=== PATIENT | male | born 1995 | race Caucasian/White ===

== ENCOUNTER 2017-10-08 18:13 | Emergency (ER) | payer SELFPAY ==
--- NOTE | 2017-10-08 19:13 | ED Physician Documentation ---
General Adult - HISTORIAN Historian: patient - HPI Stated Complaint: right hand pain Chief Complaint: General Adult Onset: minutes Timing: still present Severity: moderate Further Comments: yes (Pt is a 22 yo male with R hand injury. Pt punched a wall on a bet, he says. Pain over R 5th metacarpel and R wrist.) - ROS CONST: no problems EYES/ENT: none CVS/RESP: none GI/: none MS/SKIN/LYMPH: other (R hand injury) - PAST HX Past History: none - SOCIAL HX Smoking History: cigarettes - FAMILY HX Family History: No - VITAL SIGNS Vital Signs: Vital Signs Temp Pulse Resp BP Pulse Ox 98.4 F 80 18 122/76 99 10/08/17 18:15 10/08/17 18:15 10/08/17 18:15 10/08/17 18:15 10/08/17 18:15 - REVIEWED ASSESSMENTS Nursing Assessment Reviewed: No Vitals Reviewed: No <Antwan Quinones - Last Filed: 10/08/17 19:11> - VITAL SIGNS Vital Signs: Vital Signs Temp Pulse Resp BP Pulse Ox 98.4 F 80 18 122/76 99 10/08/17 18:15 10/08/17 18:15 10/08/17 18:15 10/08/17 18:15 10/08/17 18:15 <JULIET SAMUELS - Last Filed: 10/08/17 21:29> - PAST HX Allergies/Adverse Reactions: Allergies Allergy/AdvReac Type Severity Reaction Status Date / Time No Known Allergies Allergy Verified 10/08/17 18:38 Home Medications: Ambulatory Orders Medication Instructions Recorded NK [NK] 10/08/17 Progress - Progress Progress: Care transferred to Juliet Samuels at 1900. <Antwan Quinones - Last Filed: 10/08/17 19:11> - Progress Progress: Patient medicated for pain and edema with toradol. Significant edema noted. Ulna gutter splint applied with 4 and 5 digits in flexed position. Cap refill prompt; patient states his hand feels better. <JULIET SAMUELS - Last Filed: 10/08/17 21:29> ED Results Lab/Radiology - Orders Orders: ED Orders Category Date Time Status HAND 3 VIEWS OR MORE [RAD] Stat Exams 10/08/17 Ordered WRIST 3 VIEWS OR MORE [RAD] Stat Exams 10/08/17 Ordered <Antwan Quinones - Last Filed: 10/08/17 19:11> - Radiology Radiology Impressions: Three views of the right wrist CLINICAL HISTORY: Injury. Punched a wall. FINDINGS: Examination right wrist in palmar, lateral oblique views demonstrates intra- articular fracture of the base of the 5th metacarpal with proximal dislocation of the base of the 5th metacarpal. IMPRESSION: Fracture dislocation at the base of the 5th metacarpal. Electronically signed on Oct 08, 2017 7:10:11 PM CDT by: Blu Elder Three views of the right hand CLINICAL HISTORY: Injury. Punched a wall. FINDINGS: Examination right hand in palmar, lateral and oblique views demonstrates intra- articular fracture base of the 5th metacarpal with proximal dislocation of the 5th metacarpal relative to the hamate. There is no other fracture identified. IMPRESSION: Intra-articular fracture dislocation the base of the 5th metacarpal. Electronically signed on Oct 08, 2017 7:08:01 PM CDT by: Blu Elder - Orders Orders: ED Orders Category Date Time Status Ulnar Gutter Splint 1T Care 10/08/17 19:24 Active HAND 3 VIEWS OR MORE [RAD] Stat Exams 10/08/17 Taken WRIST 3 VIEWS OR MORE [RAD] Stat Exams 10/08/17 Taken <JULIET SAMUELS - Last Filed: 10/08/17 21:29> General Adult Physical Exam - PHYSICAL EXAM GENERAL APPEARANCE: moderate distress NECK: normal inspection, supple RESPIRATORY: no resp distress BACK: normal inspection SKIN: warm/dry, normal color EXTREMITIES: other (tenderness, deformity, R hand over 5th metacarpal. Mild wrist pain, FROM R wrist) NEURO: oriented X3, motor nml, sensation nml <Antwan Quinones - Last Filed: 10/08/17 19:11> Discharge <Antwan Quinones - Last Filed: 10/08/17 19:11> Decision to Admit: NO Decision Time: 19:38 <JULIET SAMUELS - Last Filed: 10/08/17 21:29> Clincal Impression: Boxers fracture Qualifiers: Encounter type: initial encounter Fracture type: closed Qualified Code(s): S62.339A - Displaced fracture of neck of unspecified metacarpal bone, initial encounter for closed fracture Referrals: Primary Doctor,No [Primary Care Provider] - 2 Days Additional Instructions: No weight bearing. Rest Ice Elevation Call orthopedics for a follow up in the next 2-3 days. See attached list for referral numbers. Take your disc and report to the appointment. Do not get your OCL splint wet. Place extremity in a trash bag to shower. Return to the ER right away if: You cannot wiggle your fingers If you fingers are pale or blue The splint is loose, damaged, gets wet or smells bad Condition: Stable Disposition: 01 HOME, SELF-CARE
--- NOTE | 2017-10-08 19:40 | Diagnostic Imaging Report ---
KASH ROBLEDO [facility] [address] [facility] [address] [address] Report Submission Date: Oct 08, 2017 7:10:11 PM CDT Patient Study Name: GLOR[address] Date: Oct 08, 2017 6:50:07 PM CDT Modality Type: DX Gender: M Description: UPPER EXTREMITY : 97 Institution: [facility] Physician: KASH ROBLEDO Three views of the right wrist CLINICAL HISTORY: Injury. Punched a wall. FINDINGS: Examination right wrist in palmar, lateral oblique views demonstrates intra- articular fracture of the base of the 5th metacarpal with proximal dislocation of the base of the 5th metacarpal. IMPRESSION: Fracture dislocation at the base of the 5th metacarpal. Electronically signed on Oct 08, 2017 7:10:11 PM CDT by: Blu NUNEZ
--- NOTE | 2017-10-08 19:40 | Diagnostic Imaging Report ---
KASH ROBLEDO [facility] [address] [facility] [address] [address] Report Submission Date: Oct 08, 2017 7:08:01 PM CDT Patient Study Name: [address] Date: Oct 08, 2017 6:48:00 PM CDT Modality Type: DX Gender: M Description: UPPER EXTREMITY : 97 Institution: [facility] Physician: KASH ROBLEDO Three views of the right hand CLINICAL HISTORY: Injury. Punched a wall. FINDINGS: Examination right hand in palmar, lateral and oblique views demonstrates intra- articular fracture base of the 5th metacarpal with proximal dislocation of the 5th metacarpal relative to the hamate. There is no other fracture identified. IMPRESSION: Intra-articular fracture dislocation the base of the 5th metacarpal. Electronically signed on Oct 08, 2017 7:08:01 PM CDT by: Blu NUNEZ
[2017-10-08 20:04] VITALS: BP 127/85
== END 2017-10-08 19:50 | disposition home or self-care (01) ==
LOC: ED 18:13
DX: S62.339A Displaced fracture of neck of unspecified metacarpal bone, initial encounter for closed fracture (principal); W22.8XXA Striking against or struck by other objects, initial encounter; Y92.9 Unspecified place or not applicable
CPT/HCPCS: 73110; 73130; 99284